=== PATIENT | female | born 1990 | race Two or more races ===

== ENCOUNTER → 2024-06-11 | Emergency (ER) | payer MEDICAID ==
[~2024-06-11] VITALS: Ht 172.7 cm; Wt 68.2 kg
[~2024-06-11] MED LIST: ACET-2247 PO; IBUP-1492 PO
[2024-06-11 21:30] VITALS: TEMP 98.3
[2024-06-11 22:17] LABS: COVID AG,FIA SOURCE NASAL SWAB
[2024-06-11 22:44] LABS: INFLUENZA TYPE A NEGATIVE FOR TYPE A (NEGATIVE); INFLUENZA TYPE B NEGATIVE FOR TYPE B (NEGATIVE)
[2024-06-11 22:46] LABS: SARS-COV2 (COVID) ANTIGEN,FIA Negative (Negative)
[2024-06-11 22:48] LABS: RAPID GROUP A STREP NEGATIVE (NEGATIVE)
[2024-06-11] MEDS: ACETAMINOPHEN 500 MG TABLET PO ONE (23:26)
[2024-06-11] MEDS: IBUPROFEN 600 MG TABLET PO ONE (23:27)
[2024-06-11 23:30] VITALS: BP 110/77; PULSE 88; RESP 15; O2SAT 99
== END | disposition home or self-care (01) ==
LOC: EMS 21:06
DX: B34.9 Viral infection, unspecified (principal); Z20.822 Contact with and (suspected) exposure to COVID-19
CPT/HCPCS: 87430; 87804; 99283

== ENCOUNTER 2024-09-23 09:47 | Emergency (ER) | payer MEDICAID, OTHER ==
[~2024-09-23] VITALS: Ht 165.1 cm; Wt 65.9 kg
[2024-09-23 09:55] VITALS: TEMP 98.2
[2024-09-23 10:31] LABS: COVID AG,FIA SOURCE NASAL SWAB
[2024-09-23 10:40] LABS: APPEARANCE,URINE HAZY (CLEAR); BILIRUBIN,URINE NEGATIVE (NEGATIVE); COLOR,URINE YELLOW (YELLOW); GLUCOSE, URINE (UA) NEGATIVE (NEGATIVE); KETONES,URINE NEGATIVE (NEGATIVE); LEUKOCYTE ESTERASE ,URINE LARGE (NEGATIVE); NITRATE,URINE NEGATIVE (NEGATIVE); OCCULT BLOOD,URINE LARGE (NEGATIVE); PH,URINE 5.5 (5.0-8.0); PROTEIN,URINE 30-70 mg/dL (NEGATIVE); SPECIFIC GRAVITIY, URINE 1.018 (1.003-1.030); UROBILINOGEN,URINE <=1.0 mg/dL (<=1.0)
[2024-09-23 10:55] LABS: INFLUENZA TYPE A NEGATIVE FOR TYPE A (NEGATIVE); INFLUENZA TYPE B NEGATIVE FOR TYPE B (NEGATIVE); SARS-COV2 (COVID) ANTIGEN,FIA Negative (Negative)
[2024-09-23 11:04] LABS: BACTERIA,URINE Few /HPF (None Seen); HCG,QUAL URINE NEGATIVE (NEGATIVE); SQUAMOUS EPITHELIAL CELL,UR Few /LPF (None Seen); WBC,URINE >100 /HPF (0-5)
[2024-09-23] MEDS: CefTRIAXone SODIUM 1 GM/VIAL IM ONE (12:55)
[2024-09-23] MEDS: LIDOCAINE/PF 1% 2 ML VIAL IM ONE (12:55)
[2024-09-23 13:10] VITALS: BP 114/61; PULSE 68; RESP 18; O2SAT 99
[2024-09-23] MEDS ORDERED: CEPH-558 PO (13:14)
== END 2024-09-23 13:26 | disposition home or self-care (01) ==
LOC: EMS 09:47
DX: N39.0 Urinary tract infection, site not specified (principal); F17.210 Nicotine dependence, cigarettes, uncomplicated; Z20.822 Contact with and (suspected) exposure to COVID-19
CPT/HCPCS: 99284; 71045; 87426; 81001; 84703; 87086; 87804; 96372; J0696; J3490